=== PATIENT | female | born 1985 | race Caucasian/White ===

== ENCOUNTER 2019-01-08 17:38 | Emergency (ER) ==
[~2019-01-08] VITALS: Ht 170.2 cm; Wt 77.6 kg
--- NOTE | 2019-01-08 18:00 | NUR ---
C/O FLANK PAIN SINCE WEDNESDAY AND GETTING WORST, PATIENT A/OX4, BREATHING EVEN AND UNLABORED, NO SOB NOTED, DENIES PAIN OR DISCOMFORT NOTED, NEEDS ATTENDED, WILL MONITOR.
[2019-01-08 18:15] LABS: APPEARANCE,URINE Clear (CLEAR); BILIRUBIN,URINE Negative (NEGATIVE); BLOOD, URINE Trace-lysed Ery/uL (NEGATIVE); COLOR,URINE Yellow (YELLOW); KETONES,URINE Negative (NEGATIVE); LEUKOCYTE ESTERASE ,URINE Negative (NEGATIVE); NITRITE, URINE Negative (NEGATIVE); PH,URINE 6.5 (5.0-8.0); PROTEIN,URINE 100 mg/dl (NEGATIVE); UGLUCOSE Negative (NEGATIVE); UROBILINOGEN,URINE 0.2 EU/dL (0.2)
[2019-01-08] MEDS ORDERED: ONDANSETRON HCL/PF 4 MG/2 ML VIAL ONE (18:27)
[2019-01-08] MEDS ORDERED: MORPHINE SULFATE INJ 4 MG/ML DISP.SYRIN ONE (18:27)
[2019-01-08] MEDS ORDERED: MORPHINE SULFATE INJ 2 MG/ML DISP.SYRIN IV ONE (18:30)
[2019-01-08] MEDS ORDERED: ONDANSETRON HCL/PF 4 MG/2 ML VIAL IVP ONE (18:30)
[2019-01-08] MEDS ORDERED: IV NS 0.9% 1,000 ML BAG IV ONE (18:30)
[2019-01-08 18:33] LABS: BACTERIA,URINE Moderate /HPF (None Seen); SQUAMOUS EPITHELIAL CELL,UR Many /HPF (None Seen)
[2019-01-08 18:34] LABS: WBC,URINE 0-2 /HPF (0-3)
[2019-01-08 18:39] LABS: BASOPHILS % (AUTO) 0.2 % (0.0-2.0); EOSINOPHILS % (AUTO) 0.4 % (0.0-6.0); HEMATOCRIT 39 % (33-45); HEMOGLOBIN 13.4 g/dL (11.5-14.8); LYMPHOCYTES # (AUTO) 1.7 /CMM (0.8-4.8); LYMPHOCYTES % (AUTO) 16.7 % (20.0-44.0); MEAN CORPUSCULAR HGB CONC 34 g/dl (31.0-36.0); MEAN CORPUSCULAR VOLUME 91 fL (82-100); MONOCYTES # (AUTO) 0.8 /CMM (0.1-1.30); MONOCYTES % (AUTO) 8.2 % (2.0-12.0); NEUTROPHILS # (AUTO) 7.6 /CMM (1.8-8.9); NEUTROPHILS % (AUTO) 74.5 % (43.0-81.0); PLATELET COUNT (AUTO) 207 /CMM (150-450); RED BLOOD CELL COUNT(AUTO) 4.31 MIL/uL (4.0-5.2); WHITE BLOOD COUNT (AUTO) 10.2 K/uL (4.3-11.0)
[2019-01-08 18:59] LABS: CALCIUM, SERUM 8.9 mg/dL (8.5-10.1); CREATININE 0.8 mg/dL (0.6-1.3); POTASSIUM 3.2 mmol/L (3.5-5.1)
[2019-01-08] MEDS ORDERED: MORPHINE SULFATE INJ 10 MG/ML DISP.SYRIN IV ONE (19:00)
[2019-01-08 19:12] LABS: ALBUMIN 3.1 g/dL (3.4-5.0); BILIRUBIN,DIRECT 0.1 mg/dL (0.0-0.2); BILIRUBIN,TOTAL 0.3 mg/dL (0.2-1.0); TOTAL PROTEIN, SERUM 7.6 g/dL (6.4-8.2)
--- NOTE | 2019-01-08 19:21 | NUR ---
PATIENT IN NAD, VSS, US TECH AT BEDSIDE, ENDORSED TO LYNDA MCLEAN FOR GYPSY.
--- NOTE | 2019-01-08 19:26 | NUR ---
PT RECEIVED FROM CARIDAD WYMAN FOR GYPSY. PT IS CURRENTLY HAVING US BEING DONE.
[2019-01-08] MEDS ORDERED: KETOROLAC TROMETHAMINE INJ 30 MG/ML VIAL IV ONE (20:00)
[2019-01-08] MEDS ORDERED: TAMSULOSIN 0.4 MG CAP.SR.24H PO ONE (20:00)
[2019-01-08] MEDS ORDERED: KETOROLAC TROMETHAMINE INJ 30 MG/ML VIAL ONE (20:13)
[2019-01-08] MEDS ORDERED: TAMSULOSIN 0.4 MG CAP.SR.24H ONE (20:13)
[2019-01-08] MEDS ORDERED: POTASSIUM CHLORIDE 20 MEQ TAB.PRT.SR PO ONE ×2 (20:13→20:30)
--- NOTE | 2019-01-08 20:34 | NUR ---
Patient discharged to home in stable condition. Written and verbal after care instructions given. Patient verbalizes understanding of instruction. IV removed. Catheter intact and site benign. Pressure and 4x4 applied to site. No bleeding noted. Pt ambulatory with a steady gait
[2019-01-08 21:26] VITALS: BP 135/88
== END 2019-01-08 20:35 | disposition home or self-care (01) ==
LOC: ER 17:42
DX: N13.2 Hydronephrosis with renal and ureteral calculous obstruction (principal); E87.6 Hypokalemia; M79.652 Pain in left thigh; I10 Essential (primary) hypertension; R00.0 Tachycardia, unspecified
CPT/HCPCS: 36415; 74176; 80048; 80076; 81001; 83690; 84703; 85025; 87077; 87086; 87186; 93971; 96374; 96375; 99284; J1885; J2270; J2405; J7030; 81000-TC

== ENCOUNTER 2019-12-15 14:18 | Emergency (ER) | payer BC ==
[~2019-12-15] VITALS: Ht 170.2 cm; Wt 77.1 kg
[2019-12-15 14:37] VITALS: BP 160/115
[2019-12-15] MEDS ORDERED: ACETAMINOPHEN ES 500 MG TABLET ONE (15:07)
[2019-12-15] MEDS ORDERED: ACETAMINOPHEN ES 500 MG TABLET PO ONE (15:30)
== END 2019-12-15 15:14 | disposition home or self-care (01) ==
LOC: ER 14:25
DX: T63.481A Toxic effect of venom of other arthropod, accidental (unintentional), initial encounter (principal); Z76.0 Encounter for issue of repeat prescription; I10 Essential (primary) hypertension; Y92.89 Other specified places as the place of occurrence of the external cause

== ENCOUNTER 2020-04-20 18:03 | Emergency (ER) | payer BC, MEDICAID ==
[~2020-04-20] VITALS: Ht 170.2 cm; Wt 81.6 kg
[2020-04-20 18:24] VITALS: BP 150/110
[2020-04-20] MEDS ORDERED: CEPHALEXIN MONOHYDRATE 500 MG CAPSULE PO ONE ×2 (18:30→18:55)
== END 2020-04-20 19:11 | disposition home or self-care (01) ==
LOC: ER 18:08
DX: L03.116 Cellulitis of left lower limb (principal); I10 Essential (primary) hypertension

== ENCOUNTER 2021-04-10 02:02 | Emergency (ER) | payer OTHER ==
[~2021-04-10] VITALS: Ht 170.2 cm; Wt 83.0 kg
--- NOTE | 2021-04-10 02:15 | NUR ---
PT BIBS FOR C/O WORSENING BLE REDNESS AND EDEMA X 3 DAYS. PT USING CRUTCHES TO AMBULATE. ALERT AND ORIENTED X4. NO SIGNS OF LABORED BREATHING PRESETN.
--- NOTE | 2021-04-10 03:33 | NUR ---
US TECH AT BED SIDE
[2021-04-10] MEDS ORDERED: SULF1TAB48 PO (04:01)
[2021-04-10] MEDS ORDERED: IBUP-1957 PO (04:01)
[2021-04-10] MEDS ORDERED: CEPH500T PO (04:01)
[2021-04-10 04:07] VITALS: BP 155/100
--- NOTE | 2021-04-10 04:07 | NUR ---
Patient discharged to home in stable condition. Written and verbal after care instructions given. Patient verbalizes understanding of instruction.
== END 2021-04-10 04:09 | disposition home or self-care (01) ==
LOC: ER 02:05
DX: S80.862A Insect bite (nonvenomous), left lower leg, initial encounter (principal); S80.861A Insect bite (nonvenomous), right lower leg, initial encounter; L03.116 Cellulitis of left lower limb; L03.115 Cellulitis of right lower limb; I10 Essential (primary) hypertension; F17.200 Nicotine dependence, unspecified, uncomplicated; Z98.890 Other specified postprocedural states; Z60.2 Problems related to living alone; Z79.899 Other long term (current) drug therapy; W57.XXXA Bitten or stung by nonvenomous insect and other nonvenomous arthropods, initial encounter; Y93.89 Activity, other specified; Y92.89 Other specified places as the place of occurrence of the external cause; Y99.8 Other external cause status
CPT/HCPCS: 93970; 99284; J7030

== ENCOUNTER 2023-03-25 18:57 | Emergency (ER) | payer MEDICAID, OTHER ==
[~2023-03-25] VITALS: Ht 170.2 cm; Wt 90.7 kg
[~2023-03-25 18:57] MED LIST: CEPH500T PO; IBUP-1957 PO; SULF1TAB48 PO
[2023-03-25 19:35] VITALS: BP 199/115; TEMP 102.2; O2SAT 98
[2023-03-25] MEDS ORDERED: ACETAMINOPHEN 650 MG/20.3 ML UDC PO ONE (20:00)
[2023-03-25] MEDS ORDERED: KETOROLAC TROMETHAMINE INJ 60 MG/2 ML VIAL IM ONE (20:00)
[2023-03-25] MEDS ORDERED: dexAMETHasone 1 MG TABLET PO ONE (20:00)
[2023-03-25] MEDS ORDERED: KETOROLAC TROMETHAMINE 15 MG/ML VIAL ONE (20:08)
[2023-03-25] MEDS ORDERED: ACETAMINOPHEN 650 MG/20.3 ML UDC ONE (20:08)
[2023-03-25] MEDS ORDERED: dexaMETHasone SOD PHOSPHATE 10 MG/ML VIAL ONE (20:09)
[2023-03-25] MEDS ORDERED: IBUP-1955 PO (20:55)
[2023-03-25] MEDS ORDERED: AMOX875T2 PO (20:55)
[2023-03-25] MEDS ORDERED: METH4TAB3 PO (20:55)
== END 2023-03-25 21:12 | disposition home or self-care (01) ==
LOC: ER 19:08
DX: J03.90 Acute tonsillitis, unspecified (principal); I10 Essential (primary) hypertension; Z60.2 Problems related to living alone; Z20.822 Contact with and (suspected) exposure to COVID-19
CPT/HCPCS: 99283; 87426; 96372; 87880; J1100; J1885; C9803; 86403-TC

== ENCOUNTER 2024-08-29 14:28 | Emergency (ER) | payer SELFPAY ==
[~2024-08-29] VITALS: Ht 170.2 cm; Wt 90.7 kg
[~2024-08-29 14:28] MED LIST changes: +AMOX875T2 PO; +IBUP-1955 PO; +METH4TAB3 PO
[2024-08-29 15:26] VITALS: BP 168/105; TEMP 98.2; O2SAT 100
== END 2024-08-29 19:51 | disposition left against medical advice (07) ==
LOC: ER 14:30
DX: M54.2 Cervicalgia (principal); M79.603 Pain in arm, unspecified; Z53.21 Procedure and treatment not carried out due to patient leaving prior to being seen by health care provider